=== PATIENT | male | born 1970 | race American Indian/Alaskan Native ===

== ENCOUNTER 2019-01-02 10:25 | Inpatient (IN) | payer MEDICARE ==
[2019-01-02] MEDS ORDERED: DUONEB *Not for PRN Use IH ONE (11:01)
[2019-01-02] MEDS ORDERED: ATROVENT IH ONE (11:26)
[2019-01-02] MEDS ORDERED: PROVENTIL IH ONE (11:26)
--- NOTE | 2019-01-02 11:33 | Emergency Department Report ---
HPI - General Chief Complaint: Dyspnea/Respdistress Time Seen by Provider: 01/02/19 11:16 - HPI HPI: Room 3 The patient is a 48-year-old male presented with a chief complaint of shortness of breath or cough. The patient states he's had a cough that has been mostly nonproductive since 12/26/2018. The patient states this morning became productive of white sputum. Patient complains soreness and bilateral ribs condition to weakness rhinorrhea and shortness of breath. Patient complains of dyspnea on exertion. Patient denies history of fever Location: Lungs, see above Duration: [See above] Quality: shortness of breath Severity: Moderate Modifying factors: [see above] Context: [see above] Mode of transportation: [not driving] ED Past Medical Hx - Past Medical History Previous Medical History?: Yes Hx Hypertension: Yes Hx Arthritis: Yes Hx Psychiatric Treatment: Yes (schizophrenia, bipolar disorder) Hx HIV: Yes (last CD4 count 978 fall) Additional medical history: Hypercholesterolemia - Surgical History Past Surgical History?: Yes Additional Surgical History: Back surgery, Michelle elvin - Family History Family history: no significant - Social History Smoking Status: Current Every Day Smoker (1 pack per day) Substance Use Type: None, Marijuana - Medications Home Medications: Home Medications Medication Instructions Recorded Confirmed Last Taken Type Amlodipine Besylate [Norvasc] 10 mg PO QDAY 01/02/19 01/02/19 01/01/19 History Dronabinol [Marinol] 5 mg PO BID 01/02/19 01/02/19 01/01/19 History Emtricitab/Rilpiviri/Tenof Ala 1 each PO QDAY 01/02/19 01/02/19 01/01/19 History [Odefsey Tablet] Megestrol [Megace] 20 ml PO QDAY 01/02/19 01/02/19 01/01/19 History Mirtazapine [Remeron] 15 mg PO HS 01/02/19 01/02/19 01/01/19 History Paliperidone Palmitate(Nf) [Invega 234 mg IM Q4W 01/02/19 01/02/19 Unknown History Sustenna(Nf)] Rosuvastatin Calcium [Crestor] 10 mg PO DAILY 01/02/19 01/02/19 01/01/19 History hydroCHLOROthiazide [Hctz] 12.5 mg PO QDAY 01/02/19 01/02/19 01/01/19 History ED Review of Systems ROS: Stated complaint: FLU SYMPTOMS Other details as noted in HPI Constitutional: weakness. denies: fever Eyes: denies: eye pain ENT: other (rhinorrhea) Respiratory: cough, shortness of breath Cardiovascular: denies: chest pain Endocrine: no symptoms reported Gastrointestinal: denies: abdominal pain Genitourinary: denies: dysuria Musculoskeletal: myalgia Neurological: denies: headache Physical Exam - Physical Exam Vital Signs: Vital Signs 01/02/19 10:44 Temperature 98.2 F Pulse Rate 135 H Respiratory 26 H Rate Blood Pressure 133/95 O2 Sat by Pulse 92 Oximetry Physical Exam: GENERAL: The patient is well-developed well-nourished male sitting on a wheelchair not appearing to be in acute distress. [] HEENT: Normocephalic. Atraumatic. Extraocular motions are intact. Patient has moist mucous membranes. NECK: Supple. Trachea midline CHEST/LUNGS: Diffuse rhonchi. There is no respiratory distress noted. HEART/CARDIOVASCULAR: Regular. There is tachycardia. There is no gallop rub or murmur. ABDOMEN: Abdomen is soft, nontender. Patient has normal bowel sounds. There is no abdominal distention. SKIN: There is no rash. There is no edema. There is no diaphoresis. NEURO: The patient is awake, alert, and oriented. The patient is cooperative. The patient has normal speech MUSCULOSKELETAL: There is no evidence of acute injury. ED Course Vital Signs 01/02/19 10:44 Temperature 98.2 F Pulse Rate 135 H Respiratory 26 H Rate Blood Pressure 133/95 O2 Sat by Pulse 92 Oximetry ED Medical Decision Making - Lab Data Result diagrams: 01/02/19 11:36 01/02/19 11:36 Laboratory Tests 01/02/19 01/02/19 01/02/19 11:36 11:36 11:36 WBC 6.4 RBC 4.43 Hgb 14.4 Hct 42.3 MCV 95 H MCH 33 H MCHC 34 RDW 15.6 H Plt Count 251 Lymph % (Auto) 14.7 [place] % (Auto) 10.3 H Eos % (Auto) 0.9 Baso % (Auto) 0.6 Lymph # 0.9 L [place] # 0.7 Eos # 0.1 Baso # 0.0 Seg Neutrophils % 73.5 H Seg Neutrophils # 4.7 POC ABG pH POC ABG pCO2 POC ABG pO2 POC ABG HCO3 POC ABG Total CO2 POC ABG O2 Sat POC ABG Base Excess FiO2 Sodium 139 Potassium 4.0 Chloride 101.2 Carbon Dioxide 27 Anion Gap 15 BUN 7 L Creatinine 1.0 Estimated GFR > 60 BUN/Creatinine Ratio 7 Glucose 138 H Calcium 9.1 Total Bilirubin 0.50 AST 22 ALT 15 Alkaline Phosphatase 64 Total Creatine Kinase 587 H CK-MB (CK-2) 2.1 CK-MB (CK-2) Rel Index 0.3 Troponin T < 0.010 NT-Pro-B Natriuret Pep 40.25 Total Protein 7.8 Albumin 4.2 Albumin/Globulin Ratio 1.2 01/02/19 14:57 WBC RBC Hgb Hct MCV MCH MCHC RDW Plt Count Lymph % (Auto) [place] % (Auto) Eos % (Auto) Baso % (Auto) Lymph # [place] # Eos # Baso # Seg Neutrophils % Seg Neutrophils # POC ABG pH 7.335 L POC ABG pCO2 42.5 POC ABG pO2 65 L POC ABG HCO3 22.7 POC ABG Total CO2 24 POC ABG O2 Sat 91 POC ABG Base Excess -3 FiO2 21 Sodium Potassium Chloride Carbon Dioxide Anion Gap BUN Creatinine Estimated GFR BUN/Creatinine Ratio Glucose Calcium Total Bilirubin AST ALT Alkaline Phosphatase Total Creatine Kinase CK-MB (CK-2) CK-MB (CK-2) Rel Index Troponin T NT-Pro-B Natriuret Pep Total Protein Albumin Albumin/Globulin Ratio - Radiology Data Radiology results: report reviewed (chest x-ray), image reviewed (chest x-ray) interpreted by me: Chest x-ray-no focal infiltrates, no pneumothorax [facility] [address] [place] [address] XRay Report Signed Patient: ESTEPHANIA NOLASCO MR#: [id number] : 1970 Acct:[id number] Age/Sex: 48 / M ADM Date: 01/02/19 Loc: ED Attending Dr: Ordering Physician: LEE CARCAMO MD Date of Service: 01/02/19 Procedure(s): XR chest routine 2V Accession Number(s): [id number] cc: LEE CARCAMO MD Fluoro Time In Minutes: PA and lateral chest: SOB. There is a severe dextroscoliosis with Rogers rods extending from the upper third to the lower thoracic levels. The mediastinal contour otherwise appears grossly normal. No vascular congestion. The lungs are well expanded and clear. No prior exams for comparison. Impression: No acute pathology. Transcribed By: [facility] Dictated By: ZEE ARREDONDO MD Electronically Authenticated By: ZEE ARREDONDO MD Signed Date/Time: 01/02/19 125 DD/ 54 TD/TT: 01/02/19 1256 [facility] [address] [place] [address] Cat Scan Report Signed Patient: ESTEPHANIA NOLASCO MR#: [id number] : 1970 Acct:[id number] Age/Sex: 48 / M ADM Date: 01/02/19 Loc: ED Attending Dr: Ordering Physician: LEE CARCAMO MD Date of Service: 01/02/19 Procedure(s): CT angio chest Accession Number(s): [id number] cc: LEE CARCAMO MD FINAL REPORT EXAM: CT ANGIO CHEST HISTORY: shortness of breath TECHNIQUE: CTA of the chest was performed after the administration of intravenous contrast. Rotating MIPS were included. Reconstructions were included in the coronal and sagittal planes. PRIORS: None. FINDINGS: Pulmonary arteries and thoracic aorta: The study is adequate for diagnostic purposes. No central or segmental pulmonary embolism. The thoracic aorta is normal in caliber. Lungs and airways: No pleural effusion. Patchy ground-glass opacities are seen in the medial aspect of the right upper lobe. The airways are patent. No bronchiectasis. There is a 4 millimeter right upper lobe pulmonary nodule on series 3, image 74. There is a 3 millimeter right middle lobe pulmonary nodule on series 3, image 149. Focal patchy opacities are seen within the lingula. Mediastinum, heart, pericardium: No mediastinal lymphadenopathy. No cardiac chamber enlargement. No pericardial effusion. Thoracic inlet, chest wall, axilla: No chest wall masses. The visualized portions of the thyroid gland demonstrate no focal lesion. No axillary lymphadenopathy. Upper abdomen: The liver is enlarged measuring 24 centimeters. Bones: Degenerative changes of the thoracic spine are seen. A left spinal fusion elvin is present. Residual dextroscoliosis of the thoracic spine is seen. IMPRESSION: 1. No central or segmental pulmonary embolism. 2. Focal opacities in the right upper lobe may represent pneumonia versus aspiration. 3. Focal opacities in the lingula may represent atelectasis although an underlying pulmonary nodule is not completely excluded. Recommend follow-up chest CT 3-6 months. 4. Additional small right lung pulmonary nodules can be further assessed on the follow-up chest CT. 5. Hepatomegaly. Transcribed By: MG Dictated By: VIKTORIYA HEATH MD Electronically Authenticated By: VIKTORIYA HEATH MD Signed Date/Time: 01/02/19 1639 DD/ 161 TD/TT: 01/02/19 1614 - Differential Diagnosis reactive airway disease, CHF, pneumonia, PE Critical care attestation.: If time is entered above; I have spent that time in minutes in the direct care of this critically ill patient, excluding procedure time. ED Disposition Clinical Impression: Shortness of breath, Pneumonia, Hypoxia Disposition: OP ADMIT IP TO THIS HOSP Is pt being admited?: Yes Does the pt Need Aspirin: Yes Condition: Fair Instructions: Bacterial Pneumonia (ED) Referrals: HONORIO NANCE MD [Primary Care Provider] - 3-5 Days Time of Disposition: 16:43 (hospitalist paged (Dr Hinds))
[2019-01-02 12:05] LABS: Basophils % (Auto) 0.6 % (0.0-1.8); Eosinophils # (Auto) 0.1 K/mm3 (0.0-0.4); Eosinophils % (Auto) 0.9 % (0.0-4.3); Hematocrit 42.3 % (35.5-45.6); Hemoglobin 14.4 gm/dl (11.8-15.2); Lymphocytes # (Auto) 0.9 K/mm3 (1.2-5.4); Lymphocytes % (Auto) 14.7 % (13.4-35.0); Mean Corpuscular HGB Conc 34 % (32-34); Mean Corpuscular Volume 95 fl (84-94); Monocytes # (Auto) 0.7 K/mm3 (0.0-0.8); Monocytes % (Auto) 10.3 % (0.0-7.3); Platelet Count 251 K/mm3 (140-440); Red Blood Count 4.43 M/mm3 (3.65-5.03); Red Cell Distribution Width 15.6 % (13.2-15.2)
[2019-01-02 12:29] LABS: Creatine Kinase MB 2.1 ng/mL (0.0-4.0)
[2019-01-02 12:32] LABS: Alanine Aminotransferase 15 units/L (7-56); Albumin 4.2 g/dL (3.9-5); BUN/Creatinine Ratio 7; Blood Urea Nitrogen 7 mg/dL (9-20); Calcium 9.1 mg/dL (8.4-10.2); Hemolysis Index 9
[2019-01-02] MEDS ORDERED: NACL 0.9% 1000 ML 1,000 ML IV ONE (12:56)
--- NOTE | 2019-01-02 13:16 | XRay Report ---
PA and lateral chest: SOB. There is a severe dextroscoliosis with Rogers rods extending from the upper third to the lower thoracic levels. The mediastinal contour otherwise appears grossly normal. No vascular congestion. The lungs are well expanded and clear. No prior exams for comparison. Impression: No acute pathology.
--- NOTE | 2019-01-02 16:39 | Cat Scan Report ---
FINAL REPORT EXAM: CT ANGIO CHEST HISTORY: shortness of breath TECHNIQUE: CTA of the chest was performed after the administration of intravenous contrast. Rotating MIPS were included. Reconstructions were included in the coronal and sagittal planes. PRIORS: None. FINDINGS: Pulmonary arteries and thoracic aorta: The study is adequate for diagnostic purposes. No central or s egmental pulmonary embolism. The thoracic aorta is normal in caliber. Lungs and airways: No pleural effusion. Patchy ground-glass opacities are seen in the medial aspect o f the right upper lobe. The airways are patent. No bronchiectasis. There is a 4 millimeter right uppe r lobe pulmonary nodule on series 3, image 74. There is a 3 millimeter right middle lobe pulmonary no dule on series 3, image 149. Focal patchy opacities are seen within the lingula. Mediastinum, heart, pericardium: No mediastinal lymphadenopathy. No cardiac chamber enlargement. No p ericardial effusion. Thoracic inlet, chest wall, axilla: No chest wall masses. The visualized portions of the thyroid glan d demonstrate no focal lesion. No axillary lymphadenopathy. Upper abdomen: The liver is enlarged measuring 24 centimeters. Bones: Degenerative changes of the thoracic spine are seen. A left spinal fusion elvin is present. Resi dual dextroscoliosis of the thoracic spine is seen. IMPRESSION: 1. No central or segmental pulmonary embolism. 2. Focal opacities in the right upper lobe may represent pneumonia versus aspiration. 3. Focal opacities in the lingula may represent atelectasis although an underlying pulmonary nodule i s not completely excluded. Recommend follow-up chest CT 3-6 months. 4. Additional small right lung pulmonary nodules can be further assessed on the follow-up chest CT. 5. Hepatomegaly.
[2019-01-02] MEDS ORDERED: ASPIRIN PO ONE (16:44)
[2019-01-02] MEDS ORDERED: ZOSYN/NS 4.5GM/100ML 4.5 GM/100 ML VIAL IV ONE (16:46)
[2019-01-02] MEDS ORDERED: ZOFRAN IV PRN (18:39)
[2019-01-02] MEDS ORDERED: SODIUM CHLORIDE FLUSH SYRINGE 10 ML IV PRN (18:39)
[2019-01-02] MEDS ORDERED: TYLENOL PO PRN (18:39)
--- NOTE | 2019-01-02 18:39 | History and Physical Report ---
History of Present Illness Date of examination: 01/02/19 Date of admission: 01/02/19 Chief complaint: H/p dictated History of present illness: H/p Dictated See in reports Medications and Allergies Allergies Allergy/AdvReac Type Severity Reaction Status Date / Time No Known Allergies Allergy Unverified 01/02/19 10:48 Home Medications Medication Instructions Recorded Confirmed Last Taken Type RX: Amlodipine Besylate [Norvasc] 10 mg PO QDAY 01/02/19 01/02/19 01/01/19 History RX: Dronabinol [Marinol] 5 mg PO BID 01/02/19 01/02/19 01/01/19 History RX: Emtricitab/Rilpiviri/Tenof Ala 1 each PO QDAY 01/02/19 01/02/19 01/01/19 History [Odefsey Tablet] RX: Megestrol [Megace] 20 ml PO QDAY 01/02/19 01/02/19 01/01/19 History RX: Mirtazapine [Remeron] 15 mg PO HS 01/02/19 01/02/19 01/01/19 History RX: Paliperidone Palmitate(Nf) 234 mg IM Q4W 01/02/19 01/02/19 Unknown History [Invega Sustenna(Nf)] RX: Rosuvastatin Calcium [Crestor] 10 mg PO DAILY 01/02/19 01/02/19 01/01/19 History RX: hydroCHLOROthiazide [HCTZ] 12.5 mg PO QDAY 01/02/19 01/02/19 01/01/19 History Albuterol Sulfate [Albuterol 0.63% 0.63 mg IH TID PRN #90 ml 01/05/19 Unknown Rx NEBS] Prednisone [predniSONE 10 mg 10 mg PO .TAPER #1 tab.ds.pk 01/05/19 Unknown Rx (6-Day Pack, 21 Tabs)] RX: ALBUTEROL Inhaler(NF) 1 puff IH Q4H #1 inha 01/05/19 Unknown Rx [VENTOLIN Inhaler(NF)] RX: Azithromycin 250 mg PO DAILY #2 tablet 01/05/19 Unknown Rx Exam - Constitutional Vitals: Temp Pulse Resp BP Pulse Ox 98.2 F 124 H 19 144/93 98 01/02/19 12:44 01/02/19 18:06 02/04/19 18:06 01/02/19 18:06 01/02/19 18:06 Results - Labs CBC & Chem 7: 01/03/19 03:51 01/03/19 03:51 Labs: Laboratory Last Values WBC 6.4 K/mm3 (4.5-11.0) 01/02/19 11:36 RBC 4.43 M/mm3 (3.65-5.03) 01/02/19 11:36 Hgb 14.4 gm/dl (11.8-15.2) 01/02/19 11:36 Hct 42.3 % (35.5-45.6) 01/02/19 11:36 MCV 95 fl (84-94) H 01/02/19 11:36 MCH 33 pg (28-32) H 01/02/19 11:36 MCHC 34 % (32-34) 01/02/19 11:36 RDW 15.6 % (13.2-15.2) H 01/02/19 11:36 Plt Count 251 K/mm3 (140-440) 01/02/19 11:36 Lymph % (Auto) 14.7 % (13.4-35.0) 01/02/19 11:36 [place] % (Auto) 10.3 % (0.0-7.3) H 01/02/19 11:36 Eos % (Auto) 0.9 % (0.0-4.3) 01/02/19 11:36 Baso % (Auto) 0.6 % (0.0-1.8) 01/02/19 11:36 Lymph # 0.9 K/mm3 (1.2-5.4) L 01/02/19 11:36 [place] # 0.7 K/mm3 (0.0-0.8) 01/02/19 11:36 Eos # 0.1 K/mm3 (0.0-0.4) 01/02/19 11:36 Baso # 0.0 K/mm3 (0.0-0.1) 01/02/19 11:36 Seg Neutrophils % 73.5 % (40.0-70.0) H 01/02/19 11:36 Seg Neutrophils # 4.7 K/mm3 (1.8-7.7) 01/02/19 11:36 POC ABG pH 7.335 (7.35-7.45) L 01/02/19 14:57 POC ABG pCO2 42.5 (35-45) 01/02/19 14:57 POC ABG pO2 65 (80-105) L 01/02/19 14:57 POC ABG HCO3 22.7 01/02/19 14:57 POC ABG Total CO2 24 01/02/19 14:57 POC ABG O2 Sat 91 01/02/19 14:57 POC ABG Base Excess -3 01/02/19 14:57 FiO2 21 % 01/02/19 14:57 Sodium 139 mmol/L (137-145) 01/02/19 11:36 Potassium 4.0 mmol/L (3.6-5.0) 01/02/19 11:36 Chloride 101.2 mmol/L (98-107) 01/02/19 11:36 Carbon Dioxide 27 mmol/L (22-30) 01/02/19 11:36 Anion Gap 15 mmol/L 01/02/19 11:36 BUN 7 mg/dL (9-20) L 01/02/19 11:36 Creatinine 1.0 mg/dL (0.8-1.5) 01/02/19 11:36 Estimated GFR > 60 ml/min 01/02/19 11:36 BUN/Creatinine Ratio 7 % 01/02/19 11:36 Glucose 138 mg/dL (75-100) H 01/02/19 11:36 Calcium 9.1 mg/dL (8.4-10.2) 01/02/19 11:36 Total Bilirubin 0.50 mg/dL (0.1-1.2) 01/02/19 11:36 AST 22 units/L (5-40) 01/02/19 11:36 ALT 15 units/L (7-56) 01/02/19 11:36 Alkaline Phosphatase 64 units/L (35-129) 01/02/19 11:36 Total Creatine Kinase 587 units/L (55-170) H 01/02/19 11:36 CK-MB (CK-2) 2.1 ng/mL (0.0-4.0) 01/02/19 11:36 CK-MB (CK-2) Rel Index 0.3 (0-4) 01/02/19 11:36 Troponin T < 0.010 ng/mL (0.00-0.029) 01/02/19 11:36 NT-Pro-B Natriuret Pep 40.25 pg/mL (0-450) 01/02/19 11:36 Total Protein 7.8 g/dL (6.3-8.2) 01/02/19 11:36 Albumin 4.2 g/dL (3.9-5) 01/02/19 11:36 Albumin/Globulin Ratio 1.2 % 01/02/19 11:36
[2019-01-02] MEDS ORDERED: PERCOCET 5/325 PO PRN (18:40)
[2019-01-02] MEDS ORDERED: DILAUDID IV PRN (18:40)
[2019-01-02] MEDS ORDERED: XYLOCAINE 1% MPF 5 mL INFILTRATI ONE (18:41)
[2019-01-02] MEDS ORDERED: ROCEPHIN IM SCH (18:45)
[2019-01-02] MEDS ORDERED: NACL 0.9% 1000 ML 1,000 ML IV SCH (19:00)
[2019-01-02] MEDS: ZITHROMAX 500 MG in NACL 0.9% 250ML 250 ML IV SCH (19:49)
[2019-01-02] MEDS: DUONEB *Not for PRN Use IH SCH (20:44)
[2019-01-02] MEDS: ROCEPHIN/NS 2 GM/100 ML 2 GM/100 ML BAG IV SCH (21:25)
[2019-01-02] MEDS: SOLU-Medrol IV SCH (21:29)
[2019-01-02] MEDS: SODIUM CHLORIDE FLUSH SYRINGE 10 ML IV SCH (21:32)
[2019-01-03] MEDS ORDERED: PALIPERIDONE PALMITATE 234 MG IM SCH (02:45)
--- NOTE | 2019-01-03 03:15 | History and Physical Report ---
CHIEF COMPLAINT: Shortness of breath and cough for 1 week. HISTORY OF PRESENT ILLNESS: The patient is a 48-year-old man with a history of HIV, hypertension, arthritis who presents with cough and shortness of breath of 1 week duration. Cough is mostly nonproductive. Also, low-grade fever present. The patient complains of soreness in both the lateral aspects of the chest. No exacerbating or precipitating factors. PAST MEDICAL HISTORY: Significant for hypertension, psychiatric treatment for schizophrenia, bipolar disorder, arthritis, HIV, last CD4 count was 678 in 2018 fall. PAST SURGICAL HISTORY: Back surgery, Rogers elvin. FAMILY HISTORY: Hypertension. SOCIAL HISTORY: Smokes about a pack a day. REVIEW OF SYSTEMS: Significant for a cough and shortness of breath and dyspnea. PHYSICAL EXAMINATION: GENERAL: Middle-aged male, cooperative during examination. VITAL SIGNS: Blood pressure is 144/91, temperature 98.3, pulse is 117 per minute HEENT: Unremarkable. NECK: Supple, no lymphadenopathy, no thyromegaly. LUNGS: Bilateral scattered rhonchi present. CARDIOVASCULAR: S1, S2 heard. No gallop, no murmur, no rub. Apical impulse in left fifth intercostal space and midclavicular line. ABDOMEN: Soft and benign. No hepatosplenomegaly. No guarding, no rigidity. Hernial orifices are normal. EXTREMITIES: Good pedal pulses. No pedal edema. CENTRAL NERVOUS SYSTEM: Alert and oriented x 4, nonfocal exam. LABORATORY DATA AND IMAGING STUDIES: Chest CTA shows no pulmonary embolism. Focal opacities in the right upper lobe, may represent pneumonia versus aspiration. Additional small right lung pulmonary nodules for which repeat chest CT is suggested. White count is 6400. ABG significant for pH of 7.335, pCO2 of 42, pO2 of 65. O2 sat was 91. Electrolytes are normal. Sodium is 139, glucose is 138, slightly high. A1c is 86.4. ASSESSMENT AND PLAN: 1. Right upper lobe pneumonia. The patient to be treated with ceftriaxone and Zithromax. 2. Hypertension. Continue amlodipine. 3. HIV. Continue antiretrovirals. 4. Hyperlipidemia. Continue rosuvastatin 10 mg once a day. 5. Deep venous thrombosis prophylaxis, Lovenox 40 mg subcutaneous daily. JOB# [id number] VSM/NTS MTDD
[2019-01-03 04:38] LABS: Basophils % (Auto) 0.2 % (0.0-1.8); Hematocrit 43.1 % (35.5-45.6); Hemoglobin 14.4 gm/dl (11.8-15.2); Lymphocytes # (Auto) 0.5 K/mm3 (1.2-5.4); Lymphocytes % (Auto) 11.9 % (13.4-35.0); Mean Corpuscular HGB Conc 33 % (32-34); Mean Corpuscular Volume 96 fl (84-94); Monocytes # (Auto) 0.1 K/mm3 (0.0-0.8); Monocytes % (Auto) 1.9 % (0.0-7.3); Platelet Count 251 K/mm3 (140-440); Red Blood Count 4.49 M/mm3 (3.65-5.03); Red Cell Distribution Width 15.3 % (13.2-15.2)
[2019-01-03 04:47] LABS: Alanine Aminotransferase 18 units/L (7-56); Albumin 4.4 g/dL (3.9-5); BUN/Creatinine Ratio 7; Blood Urea Nitrogen 6 mg/dL (9-20); Calcium 8.7 mg/dL (8.4-10.2); Hemolysis Index 2
[2019-01-03] MEDS: SOLU-Medrol IV SCH ×3 (05:41→22:53)
[2019-01-03] MEDS: DUONEB *Not for PRN Use IH SCH ×4 (07:18→20:09)
[2019-01-03] MEDS: ROCEPHIN/NS 2 GM/100 ML 2 GM/100 ML BAG IV SCH (09:04)
[2019-01-03] MEDS: HCTZ PO SCH (09:05)
[2019-01-03] MEDS: LOVENOX SUB-Q SCH (09:05)
[2019-01-03] MEDS: NORVASC PO SCH (09:05)
[2019-01-03] MEDS: MEGACE PO SCH (09:06)
[2019-01-03] MEDS ORDERED: DRONABINOL 5 MG PO SCH (10:00)
--- NOTE | 2019-01-03 10:51 | Progress Note ---
Assessment and Plan Assessment and plan: 48-year-old man with past medical history of hypertension, bipolar disease, HIV, CD4 counts 978, hyperlipidemia. The patient presents with cough 1 week, CT angiogram of the chest shows focal opacities of the right upper lobe, small right lung pulmonary nodules, I was negative for pulmonary embolism Plan The patient's immune system is intact, therefore we'll treat empirically for community-acquired pneumonia. Continue home medications Diagnoses Community acquired pneumonia sepsis HIV, CD4 counts 978 Hyperlipidemia Bipolar disorder History Interval history: Review of systems Constitutional: No fevers, no malaise, no joint pains CVS: No chest pain, no orthopnea, no dyspnea on exertion, no pedal edema GI: No abdominal pain, no diarrhea, no vomiting, no constipation Respiratory: He continues to complain of productive cough Hospitalist Physical - Physical exam Narrative exam: General.: Appears well, no distress, nontoxic HEENT: Moist mucous membranes, extraocular muscles intact, no lymphadenopathy Neck: supple Cardiac: S1-S2 heard Lungs: Crackles in right lung Abdomen: soft , nontender, nondistended, bowel sounds positive Extremities: no edema clubbing or cyanosis Skin: no rash or lesions Neurologic: no gross focal deficits Psych: calm, and cooperative - Constitutional Vitals: Temp Pulse Resp BP Pulse Ox 98.3 F 121 H 18 138/91 94 01/03/19 05:17 01/03/19 09:05 01/03/19 07:19 01/03/19 09:05 01/03/19 08:46 Results - Labs CBC & Chem 7: 01/03/19 03:51 01/03/19 03:51 Labs: Laboratory Last Values WBC 3.9 K/mm3 (4.5-11.0) L 01/03/19 03:51 RBC 4.49 M/mm3 (3.65-5.03) 01/03/19 03:51 Hgb 14.4 gm/dl (11.8-15.2) 01/03/19 03:51 Hct 43.1 % (35.5-45.6) 01/03/19 03:51 MCV 96 fl (84-94) H 01/03/19 03:51 MCH 32 pg (28-32) 01/03/19 03:51 MCHC 33 % (32-34) 01/03/19 03:51 RDW 15.3 % (13.2-15.2) H 01/03/19 03:51 Plt Count 251 K/mm3 (140-440) 01/03/19 03:51 Lymph % (Auto) 11.9 % (13.4-35.0) L 01/03/19 03:51 [place] % (Auto) 1.9 % (0.0-7.3) 01/03/19 03:51 Eos % (Auto) 0.0 % (0.0-4.3) 01/03/19 03:51 Baso % (Auto) 0.2 % (0.0-1.8) 01/03/19 03:51 Lymph # 0.5 K/mm3 (1.2-5.4) L 01/03/19 03:51 [place] # 0.1 K/mm3 (0.0-0.8) 01/03/19 03:51 Eos # 0.0 K/mm3 (0.0-0.4) 01/03/19 03:51 Baso # 0.0 K/mm3 (0.0-0.1) 01/03/19 03:51 Seg Neutrophils % 86.0 % (40.0-70.0) H 01/03/19 03:51 Seg Neutrophils # 3.4 K/mm3 (1.8-7.7) 01/03/19 03:51 POC ABG pH 7.335 (7.35-7.45) L 01/02/19 14:57 POC ABG pCO2 42.5 (35-45) 01/02/19 14:57 POC ABG pO2 65 (80-105) L 01/02/19 14:57 POC ABG HCO3 22.7 01/02/19 14:57 POC ABG Total CO2 24 01/02/19 14:57 POC ABG O2 Sat 91 01/02/19 14:57 POC ABG Base Excess -3 01/02/19 14:57 FiO2 21 % 01/02/19 14:57 Sodium 142 mmol/L (137-145) 01/03/19 03:51 Potassium 4.6 mmol/L (3.6-5.0) 01/03/19 03:51 Chloride 103.1 mmol/L (98-107) 01/03/19 03:51 Carbon Dioxide 22 mmol/L (22-30) 01/03/19 03:51 Anion Gap 22 mmol/L 01/03/19 03:51 BUN 6 mg/dL (9-20) L 01/03/19 03:51 Creatinine 0.9 mg/dL (0.8-1.5) 01/03/19 03:51 Estimated GFR > 60 ml/min 01/03/19 03:51 BUN/Creatinine Ratio 7 % 01/03/19 03:51 Glucose 212 mg/dL (75-100) H 01/03/19 03:51 Hemoglobin A1c 6.4 % (4-6) H 01/02/19 18:46 Calcium 8.7 mg/dL (8.4-10.2) 01/03/19 03:51 Total Bilirubin 0.20 mg/dL (0.1-1.2) 01/03/19 03:51 AST 22 units/L (5-40) 01/03/19 03:51 ALT 18 units/L (7-56) 01/03/19 03:51 Alkaline Phosphatase 62 units/L (35-129) 01/03/19 03:51 Total Creatine Kinase 587 units/L (55-170) H 01/02/19 11:36 CK-MB (CK-2) 2.1 ng/mL (0.0-4.0) 01/02/19 11:36 CK-MB (CK-2) Rel Index 0.3 (0-4) 01/02/19 11:36 Troponin T < 0.010 ng/mL (0.00-0.029) 01/02/19 11:36 NT-Pro-B Natriuret Pep 40.25 pg/mL (0-450) 01/02/19 11:36 Total Protein 7.0 g/dL (6.3-8.2) 01/03/19 03:51 Albumin 4.4 g/dL (3.9-5) 01/03/19 03:51 Albumin/Globulin Ratio 1.7 % 01/03/19 03:51
[2019-01-03] MEDS: NON-FORMULARY (Emtricitab/Rilpiviri/Tenof Ala [Odefsey Tablet] 1 EACH) PO SCH (11:29)
[2019-01-03] MEDS: MARINOL PO SCH ×2 (11:31→22:53)
[2019-01-03] MEDS: SODIUM CHLORIDE FLUSH SYRINGE 10 ML IV SCH ×2 (11:31→22:54)
[2019-01-03] MEDS: ZITHROMAX 500 MG in NACL 0.9% 250ML 250 ML IV SCH (11:45)
[2019-01-03] MEDS: REMERON PO SCH (22:54)
[2019-01-04] MEDS: SOLU-Medrol IV SCH ×3 (05:42→22:09)
[2019-01-04] MEDS: ZITHROMAX 500 MG in NACL 0.9% 250ML 250 ML IV SCH (09:09)
[2019-01-04] MEDS: ROCEPHIN/NS 2 GM/100 ML 2 GM/100 ML BAG IV SCH (09:09)
[2019-01-04] MEDS: SODIUM CHLORIDE FLUSH SYRINGE 10 ML IV SCH ×2 (09:09→22:10)
[2019-01-04] MEDS: MEGACE PO SCH (09:10)
[2019-01-04] MEDS: LOVENOX SUB-Q SCH (09:10)
[2019-01-04] MEDS: NORVASC PO SCH (09:11)
[2019-01-04] MEDS: NON-FORMULARY (Emtricitab/Rilpiviri/Tenof Ala [Odefsey Tablet] 1 EACH) PO SCH (09:11)
[2019-01-04] MEDS: HCTZ PO SCH (09:11)
[2019-01-04] MEDS: DUONEB *Not for PRN Use IH SCH ×4 (09:23→21:25)
[2019-01-04] MEDS: MARINOL PO SCH ×2 (10:00→22:10)
--- NOTE | 2019-01-04 10:43 | Progress Note ---
Assessment and Plan Assessment and plan: 48-year-old man with past medical history of hypertension, bipolar disease, HIV, CD4 counts 978, hyperlipidemia. The patient presents with cough 1 week, CT angiogram of the chest shows focal opacities of the right upper lobe, small right lung pulmonary nodules, I was negative for pulmonary embolism Plan The patient's immune system is intact, therefore we'll treat empirically for community-acquired pneumonia. Continue home medications fup rapid flu, still pending Diagnoses Community acquired pneumonia sepsis HIV, CD4 counts 978 Hyperlipidemia Bipolar disorder History Interval history: Review of systems Constitutional: No fevers, no malaise, no joint pains CVS: No chest pain, no orthopnea, no dyspnea on exertion, no pedal edema GI: No abdominal pain, no diarrhea, no vomiting, no constipation Respiratory: He continues to complain of productive cough, assoc with sob Hospitalist Physical - Physical exam Narrative exam: General.: Appears well, no distress, nontoxic HEENT: Moist mucous membranes, extraocular muscles intact, no lymphadenopathy Neck: supple Cardiac: S1-S2 heard Lungs: Crackles in right lung Abdomen: soft , nontender, nondistended, bowel sounds positive Extremities: no edema clubbing or cyanosis Skin: no rash or lesions Neurologic: no gross focal deficits Psych: calm, and cooperative - Constitutional Vitals: Temp Pulse Resp BP Pulse Ox 97.9 F 109 H 17 125/77 93 01/04/19 05:29 01/04/19 09:24 01/04/19 09:24 01/04/19 05:29 01/04/19 09:24 Results - Labs CBC & Chem 7: 01/03/19 03:51 01/03/19 03:51 Labs: Laboratory Last Values WBC 3.9 K/mm3 (4.5-11.0) L 01/03/19 03:51 RBC 4.49 M/mm3 (3.65-5.03) 01/03/19 03:51 Hgb 14.4 gm/dl (11.8-15.2) 01/03/19 03:51 Hct 43.1 % (35.5-45.6) 01/03/19 03:51 MCV 96 fl (84-94) H 01/03/19 03:51 MCH 32 pg (28-32) 01/03/19 03:51 MCHC 33 % (32-34) 01/03/19 03:51 RDW 15.3 % (13.2-15.2) H 01/03/19 03:51 Plt Count 251 K/mm3 (140-440) 01/03/19 03:51 Lymph % (Auto) 11.9 % (13.4-35.0) L 01/03/19 03:51 [place] % (Auto) 1.9 % (0.0-7.3) 01/03/19 03:51 Eos % (Auto) 0.0 % (0.0-4.3) 01/03/19 03:51 Baso % (Auto) 0.2 % (0.0-1.8) 01/03/19 03:51 Lymph # 0.5 K/mm3 (1.2-5.4) L 01/03/19 03:51 [place] # 0.1 K/mm3 (0.0-0.8) 01/03/19 03:51 Eos # 0.0 K/mm3 (0.0-0.4) 01/03/19 03:51 Baso # 0.0 K/mm3 (0.0-0.1) 01/03/19 03:51 Seg Neutrophils % 86.0 % (40.0-70.0) H 01/03/19 03:51 Seg Neutrophils # 3.4 K/mm3 (1.8-7.7) 01/03/19 03:51 POC ABG pH 7.335 (7.35-7.45) L 01/02/19 14:57 POC ABG pCO2 42.5 (35-45) 01/02/19 14:57 POC ABG pO2 65 (80-105) L 01/02/19 14:57 POC ABG HCO3 22.7 01/02/19 14:57 POC ABG Total CO2 24 01/02/19 14:57 POC ABG O2 Sat 91 01/02/19 14:57 POC ABG Base Excess -3 01/02/19 14:57 FiO2 21 % 01/02/19 14:57 Sodium 142 mmol/L (137-145) 01/03/19 03:51 Potassium 4.6 mmol/L (3.6-5.0) 01/03/19 03:51 Chloride 103.1 mmol/L (98-107) 01/03/19 03:51 Carbon Dioxide 22 mmol/L (22-30) 01/03/19 03:51 Anion Gap 22 mmol/L 01/03/19 03:51 BUN 6 mg/dL (9-20) L 01/03/19 03:51 Creatinine 0.9 mg/dL (0.8-1.5) 01/03/19 03:51 Estimated GFR > 60 ml/min 01/03/19 03:51 BUN/Creatinine Ratio 7 % 01/03/19 03:51 Glucose 212 mg/dL (75-100) H 01/03/19 03:51 Hemoglobin A1c 6.4 % (4-6) H 01/02/19 18:46 Calcium 8.7 mg/dL (8.4-10.2) 01/03/19 03:51 Total Bilirubin 0.20 mg/dL (0.1-1.2) 01/03/19 03:51 AST 22 units/L (5-40) 01/03/19 03:51 ALT 18 units/L (7-56) 01/03/19 03:51 Alkaline Phosphatase 62 units/L (35-129) 01/03/19 03:51 Total Creatine Kinase 587 units/L (55-170) H 01/02/19 11:36 CK-MB (CK-2) 2.1 ng/mL (0.0-4.0) 01/02/19 11:36 CK-MB (CK-2) Rel Index 0.3 (0-4) 01/02/19 11:36 Troponin T < 0.010 ng/mL (0.00-0.029) 01/02/19 11:36 NT-Pro-B Natriuret Pep 40.25 pg/mL (0-450) 01/02/19 11:36 Total Protein 7.0 g/dL (6.3-8.2) 01/03/19 03:51 Albumin 4.4 g/dL (3.9-5) 01/03/19 03:51 Albumin/Globulin Ratio 1.7 % 01/03/19 03:51
[2019-01-04] MEDS: REMERON PO SCH (22:09)
[2019-01-05] MEDS: SOLU-Medrol IV SCH ×2 (05:28→13:30)
[2019-01-05] MEDS: DUONEB *Not for PRN Use IH SCH ×3 (08:02→16:59)
[2019-01-05] MEDS: ROCEPHIN/NS 2 GM/100 ML 2 GM/100 ML BAG IV SCH (09:19)
[2019-01-05] MEDS: HCTZ PO SCH (09:20)
[2019-01-05] MEDS: ZITHROMAX 500 MG in NACL 0.9% 250ML 250 ML IV SCH (09:20)
[2019-01-05] MEDS: NORVASC PO SCH (09:20)
[2019-01-05] MEDS: MEGACE PO SCH (09:21)
[2019-01-05] MEDS: NON-FORMULARY (Emtricitab/Rilpiviri/Tenof Ala [Odefsey Tablet] 1 EACH) PO SCH (09:21)
[2019-01-05] MEDS: SODIUM CHLORIDE FLUSH SYRINGE 10 ML IV SCH (09:22)
[2019-01-05] MEDS: MARINOL PO SCH (10:00)
[2019-01-05] MEDS ORDERED: LOVENOX SUB-Q SCH (10:00)
--- NOTE | 2019-01-05 11:35 | XRay Report ---
ROUTINE CHEST, TWO VIEWS: HISTORY: Fever. The trachea, heart, mediastinal contour, and lung roblero are unremarkable. Scoliosis is secured by a single Rogers elvin. No change since 01/02/19. IMPRESSION: Unremarkable chest x-ray.
--- NOTE | 2019-01-05 12:09 | Consultation ---
<CORNELL NEGRETE - Last Filed: 01/05/19 15:37> History of Present Illness - Reason for Consult Consult date: 01/05/19 HIV, PNA - History of Present Illness This patient is a 48-year old male with a past medical history of HIV (CD4 count 978), Schizophrenia and bipolar disorder. He presented to the ED on 01/02/19 with a chief complaint of shortness of breath and cough. He state that he has a cough that has been mostly nonproductive since 12/26/2018, however on the morning of 01/02/19, his sputim became productive. Upon further evaluation, patient complains of rib soreness, weakness, rhiorrhea , SOB and dyspnea on exertion.. On admission WBC 6.4, Creatinine 1.0, CK 587, Temperature 98.2, , HR 135, BP 11/70, Influenza rapid was negative, Chest CT showed CT angiogram showed focal opacities of the right upper lobe, small right lung pulmonary nodules, It was negative for pulmonary embolism. Blood cultures were drawn and show no growth thus far. Patient states that he was diagnoised with HIV in 2008, he is currently on ART therapy and gets his medications from [facility] in [place]. His last appointment was in October and his last CD4 978 and VL <20. He admits to tobacco abuse but denies alcohol or substance abuse. Review of Systems: General: no fever, chills, nightsweats, unintentional weight change, or change in appetite Cutaneous: no rash, pruritus Head: no headaches or injury Eyes: no changes in vision, eye pain, double vision Ears: no ear pain, ear discharge, ringing or hearing loss Nose: no nose bleeding, stuffiness Mouth & throat: no bleeding gums, no horseness, no dental problems, or swollen glands Neck: no pain, node enlargement/lumps, tyroid enlargement or tenderness Respiratory: + cough, sputum Cardiovascular: no chest pain, leg edema, cyanosis, REDD, orthopnea Musculoskeletal: no decreased joint motion, bone or joint pain, joint swelling, muscle aches Gastrointestinal: no nausea, vomiting, hematemesis, + soft stools Genitourinary/Reproductive: no frequent urination, no dysuria, hematuria, inco ntinence Neurogical: no seizures, no headaches, no weakness, Psychiatric: stable mood; no excessive anxiety, sadness or moodiness Medications and Allergies Allergies Allergy/AdvReac Type Severity Reaction Status Date / Time No Known Allergies Allergy Unverified 01/02/19 10:48 Home Medications Medication Instructions Recorded Confirmed Last Taken Type RX: Amlodipine Besylate [Norvasc] 10 mg PO QDAY 01/02/19 01/02/19 01/01/19 History RX: Dronabinol [Marinol] 5 mg PO BID 01/02/19 01/02/19 01/01/19 History RX: Emtricitab/Rilpiviri/Tenof Ala 1 each PO QDAY 01/02/19 01/02/19 01/01/19 History [Odefsey Tablet] RX: Megestrol [Megace] 20 ml PO QDAY 01/02/19 01/02/19 01/01/19 History RX: Mirtazapine [Remeron] 15 mg PO HS 01/02/19 01/02/19 01/01/19 History RX: Paliperidone Palmitate(Nf) 234 mg IM Q4W 01/02/19 01/02/19 Unknown History [Invega Sustenna(Nf)] RX: Rosuvastatin Calcium [Crestor] 10 mg PO DAILY 01/02/19 01/02/19 01/01/19 History RX: hydroCHLOROthiazide [HCTZ] 12.5 mg PO QDAY 01/02/19 01/02/19 01/01/19 History Albuterol Sulfate [Albuterol 0.63% 0.63 mg IH TID PRN #90 ml 01/05/19 Unknown Rx NEBS] Prednisone [predniSONE 10 mg 10 mg PO .TAPER #1 tab.ds.pk 01/05/19 Unknown Rx (6-Day Pack, 21 Tabs)] RX: ALBUTEROL Inhaler(NF) 1 puff IH Q4H #1 inha 01/05/19 Unknown Rx [VENTOLIN Inhaler(NF)] RX: Azithromycin 250 mg PO DAILY #2 tablet 01/05/19 Unknown Rx Active Meds: Active Medications Acetaminophen (Tylenol) 650 mg PO Q4H PRN PRN Reason: Pain MILD(1-3)/Fever >100.5/BOWLES Albuterol/Ipratropium (Duoneb *Not For Prn Use*) 1 ampul IH QIDRT JENIFFER Last Admin: 01/05/19 08:02 Dose: 1 ampul Documented by: Amlodipine Besylate (Norvasc) 10 mg PO QDAY [facility] Last Admin: 01/05/19 09:20 Dose: 10 mg Documented by: Atorvastatin Calcium (Lipitor) 20 mg PO QHS [facility] Last Admin: 01/04/19 22:09 Dose: 20 mg Documented by: Dronabinol (Marinol) 5 mg PO BID [facility] Stop: 01/05/19 13:30 Last Admin: 01/04/19 22:10 Dose: 5 mg Documented by: Dronabinol (Marinol) 5 mg PO BID [facility] Enoxaparin Sodium (Lovenox) 40 mg SUB-Q QDAY@1000 [facility] Last Admin: 01/05/19 09:20 Dose: 40 mg Documented by: Hydrochlorothiazide (Hctz) 12.5 mg PO QDAY [facility] Last Admin: 01/05/19 09:20 Dose: 12.5 mg Documented by: Hydromorphone HCl (Dilaudid) 0.5 mg IV Q3H PRN PRN Reason: Pain , Severe (7-10) Azithromycin 500 mg/ Sodium (Chloride) 250 mls @ 250 mls/hr IV Q24HR [facility] Stop: 01/06/19 10:59 Last Admin: 01/05/19 09:20 Dose: 250 mls/hr Documented by: Ceftriaxone Sodium (Rocephin/Ns 2 Gm/100 Ml) 2 gm in 100 mls @ 200 mls/hr IV Q24HR [facility]; Protocol Last Admin: 01/05/19 09:19 Dose: 200 mls/hr Documented by: Megestrol Acetate (Megace) 800 mg PO QDAY [facility] Last Admin: 01/05/19 09:21 Dose: 800 mg Documented by: Methylprednisolone Sodium Succinate (Solu-Medrol) 40 mg IV Q8HR [facility] Last Admin: 01/05/19 05:28 Dose: 40 mg Documented by: Mirtazapine (Remeron) 15 mg PO HS [facility] Last Admin: 01/04/19 22:09 Dose: 15 mg Documented by: Miscellaneous Medication (Emtricitab/Rilpiviri/Tenof Ala [Odefsey Tablet]) 1 each PO QDAY [facility] Last Admin: 01/05/19 09:21 Dose: 1 each Documented by: Miscellaneous Medication (Paliperidone Palmitate(Nf)) 234 mg IM Q4W [facility] Ondansetron HCl (Zofran) 4 mg IV Q8H PRN PRN Reason: Nausea And Vomiting Oxycodone/Acetaminophen (Percocet 5/325) 1 tab PO Q6H PRN PRN Reason: Pain, Moderate (4-6) Last Admin: 01/04/19 02:35 Dose: 1 tab Documented by: Sodium Chloride (Sodium Chloride Flush Syringe 10 Ml) 10 ml IV BID JENIFFER Last Admin: 01/05/19 09:22 Dose: 10 ml Documented by: Sodium Chloride (Sodium Chloride Flush Syringe 10 Ml) 10 ml IV PRN PRN PRN Reason: LINE FLUSH Physical Examination - Physical Exam Narrative exam: Constitutional: Alert, cooperative. No acute distress Head, Ears, Nose: Normocephalic, atraumatic. External ears, nose normal Eyes: Conjunctivae/corneas clear. No icterus. No ptosis. Neck: Supple, no meningeal signs Oral: dentition poor. no thrush Cardiovascular: S1, S2 normal. Respiratory: Good air entry, clear to auscultation bilaterally, +cough, yell ow/white sputum GI: Soft, non-tender; bowel sounds normal. No peritoneal signs Musculoskeletal: No pedal edema, no cyanosis. Skin: No rash or abscess. Dry skin Hem/Lymphatic: No palpable cervical or supraclavicular nodes. No lymphangitis Psych: Mood ok. Affect normal Neurological: Awake, alert, oriented. - Constitutional Vitals: Vital Signs Temp Pulse Resp BP Pulse Ox 97.7 F 117 H 16 121/83 97 01/04/19 22:47 01/04/19 22:47 01/04/19 22:47 01/04/19 22:47 01/04/19 22:47 Temperature -Last 24 Hours Temperature 97.7 F Temperature 98.3 F Results - Labs CBC & Chem 7: 01/03/19 03:51 01/03/19 03:51 Assessment and Plan Cultures: 12/31/2018 Blood: no growth thus far A/P: 48-year old male, with a history of HIV (CD4 count 978/ VL <20) schizophrenia, bipolar disorder, HTN, hyperlipedemia, admitted with: 1. Community Acquired Pneumonia: presented in the ED with persistent cough and and SOB times 1 week, past 1 day +productive cough with white/yellow sputum. Chest CT shows focal opacities of the right upper lobe, small right lung pulmonary nodules, I negative for pulmonary embolism. No leukocytosis or fevers. Influenza rapid is negative, blood cultures show not growth thus far, sputum cultures have not been drawn and show no growth to date. Currently being treated with azithromycin and ceftriaxone. 2. HIV: diagnosed with HIV in 2008, on ART therapy Gerald[facility] Last [facility] in October, CD4 count 978/VL <20. 3. Tobacco abuse: discussion about smoking cessation. Plan -continue ceftriaxone and Azithromycin for now -Order sputum culture -f/u blood culture d/w Dr.Diaz Cornell Negrete, [facility] M: [phone] O:[phone] <YUNG WYATT - Last Filed: 01/05/19 17:37> Physical Examination - Constitutional Vitals: Vital Signs Temp Pulse Resp BP Pulse Ox 98.5 F 118 H 18 124/88 95 01/05/19 11:11 01/05/19 14:15 01/05/19 14:15 01/05/19 11:11 01/05/19 11:11 Temperature -Last 24 Hours Temperature 98.5 F Temperature 97.5 F Temperature 97.7 F Temperature 98.3 F Results - Labs CBC & Chem 7: 01/03/19 03:51 01/03/19 03:51 Assessment and Plan PATIENT LEFT THE HOSPITAL BEFORE I CAME TO SEE HIM. DISCUSSED WITH DR FALL.
[2019-01-05 12:33] VITALS: BP 124/88
--- NOTE | 2019-01-05 13:39 | Discharge Summary ---
Providers - Providers Date of Admission: 01/02/19 18:39 Attending physician: JOSI FALL MD 01/05/19 08:38 Consult to Physician [CONS] Routine Comment: Consulting Provider: YUNG WYATT Physician Instructions: Reason For Exam: HIV and pna Primary care physician: HONORIO NANCE Hospitalization Condition: Fair Hospital course: 48-year-old man with past medical history of hypertension, bipolar disease, HIV, CD4 counts 978, hyperlipidemia. The patient presents with cough 1 week, he was initially thought to have pneumonia, because CT of his chest showed right upper lobe infiltrates, and was negative for PE. He complained that he had been sleeping in his family members house with a cat and had been sleeping on the floor, and had exposure to cold air and dust. He presented with wheezing and shortness of breath. Repeat chest x-ray showed complete resolution of right upper lobe opacity, essentially ruling out pneumonia. The patient was diagnosed with acute bronchitis, he was treated with antibiotic steroids and nebulizer. Patient clinically improved and was subsequently discharged. Diagnoses Acute bronchitis Community acquired pneumonia was ruled out sepsis was ruled out HIV, CD4 counts 978 Hyperlipidemia Bipolar disorder Disposition: DC-01 TO HOME OR SELFCARE Time spent for discharge: 35 minutes Core Measure Documentation - Palliative Care Palliative Care/ Comfort Measures: Not Applicable - Core Measures Any of the following diagnoses?: none Exam - Constitutional Vitals: Temp Pulse Resp BP Pulse Ox 98.5 F 115 H 22 124/88 95 01/05/19 11:11 01/05/19 11:11 01/05/19 11:11 01/05/19 11:11 01/05/19 11:11 General appearance: Present: no acute distress, well-nourished - EENT Eyes: Present: PERRL ENT: hearing intact, clear oral mucosa - Neck Neck: Present: supple, normal ROM - Respiratory Respiratory effort: normal Respiratory: bilateral: wheezing - Cardiovascular Heart Sounds: Present: S1 & S2. Absent: rub, click - Extremities Extremities: pulses symmetrical, No edema Peripheral Pulses: within normal limits - Abdominal General gastrointestinal: Present: soft, non-tender, non-distended, normal bowel sounds Male genitourinary: Present: normal - Integumentary Integumentary: Present: clear, warm, dry - Musculoskeletal Musculoskeletal: gait normal, strength equal bilaterally - Psychiatric Psychiatric: appropriate mood/affect, intact judgment & insight - Neurologic Neurologic: CNII-XII intact, moves all extremities Plan Follow up with: HONORIO NANCE MD [Primary Care Provider] - 3-5 Days Prescriptions: ALBUTEROL Inhaler(NF) [VENTOLIN Inhaler(NF)] 1 puff IH Q4H #1 inha Albuterol Sulfate [Albuterol 0.63% NEBS] 0.63 mg IH TID PRN #90 ml PRN Reason: Wheezing Azithromycin 250 mg PO DAILY #2 tablet Prednisone [predniSONE 10 mg (6-Day Pack, 21 Tabs)] 10 mg PO .TAPER #1 tab.ds.pk Other Discharge Orders: Nebulizer (Amb) Location: None Selected
[2019-01-05] MEDS ORDERED: MARINOL PO SCH (22:00)
[2019-01-10 21:16] LABS: CD4/CD8 Ratio 0.6 (0.86-5.00)
[2019-01-11 14:16] LABS: HIV-1 RNA QN PCR 1.76 Log cps/mL
== END 2019-01-05 16:13 | disposition home or self-care (01) | DRG 203 ==
LOC: ED 10:25 → 3A 18:39
PROVIDERS: ADMIT Internal Medicine; ATTEND Internal Medicine
PROC: 4A033R1 Measurement of Arterial Saturation, Peripheral, Percutaneous Approach (ICD-10-PCS; principal; 2019-01-02)
DX: J20.9 Acute bronchitis, unspecified (principal); I10 Essential (primary) hypertension; F31.9 Bipolar disorder, unspecified; E78.5 Hyperlipidemia, unspecified; F20.9 Schizophrenia, unspecified; F17.200 Nicotine dependence, unspecified, uncomplicated; R91.1 Solitary pulmonary nodule; M19.90 Unspecified osteoarthritis, unspecified site; F12.90 Cannabis use, unspecified, uncomplicated; Z79.899 Other long term (current) drug therapy; Z82.49 Family history of ischemic heart disease and other diseases of the circulatory system; Z21 Asymptomatic human immunodeficiency virus [HIV] infection status
CPT/HCPCS: 36415; 71046; 71275; 80053; 82024; 82550; 82553; 82803; 83036; 83880; 84484; 85025; 87040; 87400; 87536; 93005; 93010; 94640; 94760; 96361; 96365; 99406; G0378; A9270-GY; J0456; J0696; J1650; J2543; J2930; J7030; J7050; Q0167; Q9967